=== PATIENT | female | born 1980 | race Caucasian/White ===

== ENCOUNTER 2021-06-13 02:40 | Outpatient (CLI) | payer OTHER, SELFPAY ==
[2021-06-13 10:30] LABS: Potassium 4.2 mmol/L (3.5-5.1)
== END 2021-06-13 02:41 | disposition home or self-care (01) ==
LOC: LBO 02:41
PROVIDERS: PCP Family Medicine; Visit Provider Family Medicine
DX: E87.6 Hypokalemia (principal)
CPT/HCPCS: 36415; 84132

== ENCOUNTER 2023-01-29 01:37 | Outpatient (CLI) | payer BC, SELFPAY ==
--- NOTE | 2023-01-29 | DI.MAMMO_ITS ---
Exam(s) MG MAMMO SCREENING 60 MIN DUR EXAM: MG MAMMO SCREENING 60 MIN DUR CLINICAL HISTORY: SCREENING, Z12.31, HAS BREAST IMPLANTS TECHNIQUE: Bilateral full field digital CC and MLO mammographic images were obtained with 3D tomosyn thesis and utilizing computer aided detection (CAD). COMPARISON: This is a baseline examination. FINDINGS: The patient has bilateral breast implants. Masses/Architectural Distortion: None seen. Microcalcifications: No suspicious pleomorphic-type are seen. Skin Thickening/Nipple Retraction: None. IMPRESSION: 1. No specific features of malignancy are noted. 2. Unless there is more urgent need, screening mammography is recommended, as per [employer] guidelines. BI-RADS Category 1 - Negative Breast Density - Category C - Heterogeneously dense Breast density category C or D implies that the patient has dense breast tissue. Dense breast tissue is very common and is not abnormal but dense breast tissue can make it harder to find cancer on a ma mmogram. Also, dense breast tissue may increase their breast cancer risk. This information about the result of the mammogram report was provided to the patient to raise their awareness. Use this report when you speak with the patient about their risks for breast cancer, which includes their family hist ory. At that time, you may recommend for more screening tests (Ultrasound or MRI) as they might be us eful based on their risk. A negative radiographic report should not delay biopsy if a dominant or clinically suspicious mass is present. Up to ten percent of cancers are not identified on mammography. A negative report may reinforce clinical impression. Adenosis and dense breasts may obscure an underlying neoplasm. False positive reports average 6 to 10%. Patient will receive a letter notifying them of these results.
== END 2023-01-29 01:57 ==
PROVIDERS: PCP Family Medicine; Visit Provider Family Medicine
DX: Z12.31 Encounter for screening mammogram for malignant neoplasm of breast (principal); Z98.82 Breast implant status
CPT/HCPCS: 77063; 77067

== ENCOUNTER 2023-04-28 17:07 | Outpatient (CLI) | payer BC, SELFPAY ==
[2023-04-28 17:13] LABS: Anion Gap 7.3 mmol/L (3-11); BUN 11 mg/dL (7-18); CO2 27.7 mmol/L (21.0-32.0); CREATININE 1.1 mg/dL (0.55-1.02); Calcium 9.7 mg/dL (8.5-10.1); Calculated LDL 119 mg/dL (<100); Chloride 104 mmol/L (98-107); Cholesterol 199 mg/dL (<200); Estimated GFR 63.15 (mL/min/1.73m2); Glucose 104 mg/dL (74-106); HDL Cholesterol 70 mg/dL (40-60); Sodium 139 mmol/L (136-145); Triglyceride 50 mg/dL (<150)
== END 2023-04-28 17:08 | disposition home or self-care (01) ==
LOC: LBO 17:08
PROVIDERS: PCP Family Medicine; Visit Provider Family Medicine
DX: Z00.00 Encounter for general adult medical examination without abnormal findings (principal); E87.6 Hypokalemia; Z13.220 Encounter for screening for lipoid disorders
CPT/HCPCS: 36415; 80048; 80061

== ENCOUNTER → 2024-02-02 00:59 | Outpatient (CLI) | payer BC, SELFPAY ==
--- NOTE | 2024-02-02 | DI.MAMMO_ITS ---
Exam(s) MG MAMMO SCREENING 60 MIN DUR EXAM: MG MAMMO SCREENING 60 MIN DUR CLINICAL HISTORY: Screening, Z12.31; has breast implants TECHNIQUE: Bilateral full field digital CC and MLO mammographic images were obtained with 3D tomosyn thesis and utilizing computer aided detection (CAD). COMPARISON: Available for comparison. FINDINGS: Masses/Architectural Distortion: None seen. The patient has bilateral breast implants which appears s table. Microcalcifications: No suspicious pleomorphic-type are seen. Skin Thickening/Nipple Retraction: None. IMPRESSION: 1. No significant interval change with no specific features of malignancy noted. 2. Unless there is more urgent need, screening mammography is recommended, as per [employer] guidelines. BI-RADS Category 1 - Negative Breast Density - Category C - Heterogeneously dense Breast density category C or D implies that the patient has dense breast tissue. Dense breast tissue is very common and is not abnormal but dense breast tissue can make it harder to find cancer on a ma mmogram. Also, dense breast tissue may increase their breast cancer risk. This information about the result of the mammogram report was provided to the patient to raise their awareness. Use this report when you speak with the patient about their risks for breast cancer, which includes their family hist ory. At that time, you may recommend for more screening tests (Ultrasound or MRI) as they might be us eful based on their risk. A negative radiographic report should not delay biopsy if a dominant or clinically suspicious mass is present. Up to ten percent of cancers are not identified on mammography. A negative report may reinforce clinical impression. Adenosis and dense breasts may obscure an underlying neoplasm. False positive reports average 6 to 10%. Patient will receive a letter notifying them of these results.
== END ==
PROVIDERS: PCP Family Medicine; Visit Provider Family Medicine
DX: Z12.31 Encounter for screening mammogram for malignant neoplasm of breast (principal); R92.333 Mammographic heterogeneous density, bilateral breasts
CPT/HCPCS: 77063; 77067

== ENCOUNTER 2024-02-09 07:18 | Day surgery (SDC) | payer BC, SELFPAY ==
--- NOTE | 2024-02-08 12:35 | HPE_ITS ---
Date of service: 02/09/24 Time of Service: 08:44 Assessment and Plan Assessment and plan (1) Screening for malignant neoplasm of colon performed: Status: Acute (2) Colon cancer screening: Status: Acute Assessment and plan: Plan: Colonoscopy w/ general & natural airway Informed consent is obtained for the procedural (explained in simple layman's terms that?the pt and/or family could understand) explaining risks vs benefits and alternatives to the procedure and consequences if we do not do the procedure and need/rational for the procedure. Risks include but are not limited to: bleeding, infection, perforation of colon.? This would necessitate emergency surgery to repair the damage w/ possible ostomy; and other associated complications w/ the required surgery. ? Also complications of anesthesia including aspiration, OK/CVA/, inability to complete the procedure. I discussed with the?patient would they could expect during the procedure, post procedure and recovery time and risks.? The patient understands that they need to have a ride home after the procedure.? The patient was given all this info rmation in writing and expressed understanding. If there are any questions or concerns please feel free to contact our office.? Generally Colonoscopy does not require antibiotics prophylaxis, This document was created with voice activated software and may contain errors. 20 mins spent in direct pt care and 15 in non face to face time History of Present Illness Narrative: Patient is here today for colonoscopy for CRC screening.??? They completed a bowel prep with just a clear yellow residual effluent.? They not having any chest pain or shortness of breath, currently.? They are not experiencing any fever or chills.? They deny any productive cough or upper respiratory tract inf ection signs or symptoms.? They are not having abdominal pain, or nausea and vomiting.? They have not had any changes in medications, past medical history or past surgical history since previously being seen in the office. They have not had any accidents or have been in the ER since the clinic pre-operative evaluation. ??I reviewed the procedure with the patient today, including risks and benefits of the procedure, and what they could expect at home for recovery.? All questions are answered to the patient?s satisfaction today, and they are stable to proceed with the proposed procedure. Patient has severe postop nausea and vomiting. Anesthesia is aware. The patient is here for Colonoscopy pre-op. She denies having any family history of colon cancer. She has not had any bowel habit changes. -Discussed colonoscopy bowel prep as well as the procedure. Discussed possible complications of the procedure to include bleeding, pain, perforation, missed small lesion/polyp, sore throat, aspiration and adverse reaction to the medications. Questions were answered to patient?s satisfaction. No guarantees were implied or given. Anesthesia: general (without airway) Previous surgical intolerances: None Previous surgical complications: None Pulmonary risk factors: None PFT's: None Planned procedure: Yes Sleep apnea risks: No Can climb one flight of stairs (12-13 steps) in less than 30 seconds without stopping and without symptoms: Yes The surgery proposed for this patient is: Low risk Active cardiac conditions: None ECHO: None Stress Test: None Active risk factors: None ASA (acetylsalicylic acid):No Beta blockers: No Anti-coagulation: N/A Medications to be held: N/A P// Colonoscopy under sedation New 43 y/o female with history of adjustment disorder presents for colonoscopy screening pre-op. She denies a family history of colon cancer. She denies any changes in bowel habits including bloody or black tarry stools, abdominal pain, diarrhea or constipation. She denies constitutional symptoms. She denies chest pain, palpitations, dyspnea or dyspnea with exertion. She d enies prior history or family history of adverse reactions or complications with anesthesia. The patient denies any history of stroke, OK, seizures, bleeding or clotting disorders. She has implanted metal in the left side of her jaw. PFSH All Active Problems Colon cancer screening (Acute) Screening for malignant neoplasm of colon performed (Acute) Adjustment disorder with anxious mood (Acute) Medical History Abnormal cervical Papanicolaou smear Hx of malignant melanoma Acne Surgical History History of mandibular surgery jaw reconstruction 1993 History of augmentation of both breasts 04/2007 H/O melanoma excision Abdomen 2007 History of colposcopy 03/07/20 Family History (Updated 08/04/23 @ 14:45 by Kiley Weaver RN, RN) Father Depression Thyroid cancer anaplastic thyroid ca Maternal Grandfather Lung cancer Mother Colon cancer Brain cancer Lung cancer Maternal Aunt Breast cancer Social History (Updated 11/18/23 @ 13:49 by EFRAÍN Portillo) Smoking/Tobacco Use Status: Former Tobacco Use Quit Date: 07/13/13 Tobacco: How many years used: 6 Smoking risk assessment performed?: Yes Alcohol Intake: former Year quit: 2020 Drug use: Occasionally Substance use type: marijuana Details: Edibles/smoking: t-1, couple hits Household members: children Housing: house Number of Children: 2 Do you feel safe at home: Yes Do you feel safe in your relationship?: Yes Additional Social history: UTAP Meds Allergies and Home Medications Allergies Allergy/AdvReac Type Severity Reaction Status Date / Time deer flies Allergy Intermediate swollen Uncoded 02/09/24 07:51 lips Home Medications ?Medication ?Instructions ?Recorded ?Confirmed ?Type adapalene 0.1 %-benzoyl peroxide 1 applic topical DAILY 08/04/23 02/09/24 H istory 2.5 % topical gel with pump (Epiduo) dextroamphetamine-amphetamine 10 10 mg PO DAILY 08/04/23 02/09/24 History mg tablet (Adderall) dextroamphetamine-amphetamine ER 20 mg PO DAILY 08/04/23 02/09/24 History 20 mg 24hr capsule,extend release (Adderall XR) epinephrine 0.3 mg/0.3 mL 0.3 mg IM ONCE 08/04/23 02/09/24 History injection, auto-injector Time Spent Time spent with Patient: <40 minutes Time was spent: preparing to see the patient(eg.review tests), obtaining and/or reviewing separately otained hiistory, ordering medications,tests, procedures, referring, communicating with other health patient care director, indepentently interpreting results, counseling the patient, care coordination and other
--- NOTE | 2024-02-08 12:46 | PDOC.DSDIS_ITS ---
Date of service: 02/09/24 Time of Service: 09:38 Discharge Plan Disposition Patient Disposition: Home Condition: Good Discharge Details Reason For Visit: colon cancer screening Attending Provider: Shayy Bustillos Primary Care Provider: Lissy Alvarado Home Meds and New Rx's Prescriptions: Continued dextroamphetamine-amphetamine [Adderall XR] 20 mg capsule,extended release 24hr 20 mg PO DAILY dextroamphetamine-amphetamine [Adderall] 10 mg tablet 10 mg PO DAILY adapalene-benzoyl peroxide [Epiduo] 0.1-2.5 % gel with pump 1 applic topical DAILY epinephrine 0.3 mg/0.3 mL auto-injector 0.3 mg IM ONCE Rx Instructions: as a single dose; may repeat once Discontinued bisacodyl [Dulcolax (bisacodyl)] 5 mg tablet,delayed release (DR/EC) 5 mg PO ONCE Qty: 4 0RF polyethylene glycol 3350 17 gram/dose powder 17 g PO DAILY Qty: 238 0RF Discharge Instructions Additional Instructions: DSU Colonoscopy Post- Op Instructions Instructions for Everyone who is given Anesthesia: For your safety, please do the following for the next twenty-four (24) hours: *Do Not operate a motor vehicle (car, truck, motorcycle, etc.) *Do Not drink alcoholic beverages or use any recreational drugs for the first 24 hours or while taking pain medications. The medications in your body may have a reaction that can be dangerous. *Do Not make any important decisions or sign any important papers. Findings: X 1 small polyp in the colon. Otherwise normal. Follow up: My office will send you a letter in 2 to 3 weeks time with the results of the pathology and when we want you to repeat your colonoscopy, most likely in 7 to 10 years time. 1. No lifting over 20 pounds or strenuous activity for the first 24 hours after your procedure. After 24 hours there are no restrictions on your activity but you may feel fatigued for a few days. 2. After you arrive home you may have a light meal and return to your normal diet as you can tolerate it without feeling sick to your stomach. 3. You may have a bloated, gaseous feeling in your belly (abdomen) after a colonoscopy. Passing gas and belching will help. Walking or lying down on your left side with your knees flexed may relieve the discomfort. Call the office at [phone] (Office) or [phone] (Hospital) right away if you notice any of the following: a.Vomiting of blood or ?coffee ground stools?. b.Rectal bleeding 1Tbsp, blood clots or continuous bleeding. c.Severe belly (abdominal) pain. d.A hard distended belly (abdomen) and an inability to pass gas. 4. Please don?t expect to have a normal BM (bowel movement) for 2-3 days after your procedure. 5. If there are questions regarding the findings of your procedure, please contact your doctor 6. If you are unable to contact your doctor with a problem, contact the hospital at [phone]. 7. Continue all your regular medications unless directed otherwise. I understand the above instructions and have no questions. Signature of Patient or Adult Escort Name of Responsible Adult Escort Signature of Nurse Date/Time Activity:: see above Diet:: see above Discharge Orders Discharge Orders: Discharge Order (Routine); Ordered 02/09/24 Ordered By: Shayy Bustillos DS: Diagnosis Discharge Diagnosis (1) Screening for malignant neoplasm of colon performed: Status: Acute Asessment and Plan: The patient is seen and examined after their colonoscopy.? The patient has been able to pass gas.? They are not having abdominal pain.? They have been able to tolerate liquids and a snack.? They do not have any nausea or vomiting.? They are not having any chest pain or shortness of breath.??? They are not having any rectal bleeding. Their vital signs have been stable-see nursing notes. We discussed findings during their colonoscopy, and any biopsies that were do ne/polyps that were removed. The patient will be sent a letter with any biopsy results, and when to repeat the colonoscopy.-see discharge instructions. Patient was given explicit instructions to follow-up regarding colonoscopy-refer to discharge instructions.? We reviewed resumption of medications. Patient verbalized understanding and discharged in stable and satisfactory condition- See nursing notes. (2) Colon cancer screening: Status: Acute
--- NOTE | 2024-02-08 12:48 | COLE_ITS ---
Date of service: 02/09/24 Time of Service: 09:40 Colonoscopy Report Date of procedure: 02/09/24 Pre-op diagnosis general: CRC screen Post-op diagnosis procedure note: other (Small rectal polyp) Surgeon: Shayy Bustillos Anesthesia Type: General:No Airway Estimated blood loss (mL): 1 Pathology: other Complications: None Disposition: same day Prep: Miralax/Dulcolax Retraction Time: 7 Procedure Description: After informed consent was obtained, explaining risks of the procedure, including but not limits to: bleeding, infections, complications of anesthesia, perforations (which may require antibiotics and /or surgery and stay in the hospital), and abdominal pain/cramping. The patient was taken to the procedure room and placed in a left decubitous position. Monitors were applied and a time out was done. The patients name, date of , procedure, allergies to medications and metal in their body was reviewed. The patient was then sedated. Once sedated and comfortable a rectal exam was done. External exam was normal. Internal exam revealed a normal sphincter tone and no palpable masses. The previously lubricated Olympus scope was then introduced (see RN notes for scope number) and retrofelexed. No internal hemorrhoids were identified. The scope was then advanced to the cecum without difficulty. The TI and appendiceal orifice were identified. The scope was then slowly retracted over 7 minutes back into the rectum. Polyps: A flat, .5cm polyp was found in rectum. This was removed with a cold biting forceps. All of the specimen was retrieved. This will be sent to pathology. There is no bleeding noted from the polypectomy site. . Diverticula: no. The mucosa is pink and healthy w/ a normal vascular pattern. The scope was removed, and the patient was woken up and taken back to Same day surgery in stable condition. The patient tolerated the procedure well and there were no immediate complications. Follow up: The patient should follow up in 7-10 years, unless they develop changes in bowel habits or other new gastrointestinal complaints. [place] Bowel Prep [place] Bowel Prep Right Colon: 3 Left Colon: 3 Transverse Colon: 3 Total Score: 9
[2024-02-09 07:54] VITALS: BP 117/79; PULSE 60; RESP 16; TEMP 36.6; O2SAT 100
[2024-02-09] MEDS: Lactated Ringers 1,000 ML 80 ML IV (08:20)
--- NOTE | 2024-02-09 08:30 | W.ANESPRE ---
General Info Date of Service Date Performed: 02/09/24 Height: 5 ft 3 in Weight: 59.4 kg Body Mass Index (BMI): 23.1 Surgical Procedure: Operation Date: 02/09/24 08:20 Proposed Procedure Side Surgeon sujey Bustillos, DO Meds Allergies and Home Medications Allergies Allergy/AdvReac Type Severity Reaction Status Date / Time deer flies Allergy Intermediate swollen Uncoded 02/09/24 07:51 lips Home Medication ?Medication ?Instructions ?Recorded adapalene 0.1 %-benzoyl peroxide 1 applic topical DAILY 08/04/23 2.5 % topical gel with pump (Epiduo) dextroamphetamine-amphetamine 10 10 mg PO DAILY 08/04/23 mg tablet (Adderall) dextroamphetamine-amphetamine ER 20 mg PO DAILY 08/04/23 20 mg 24hr capsule,extend release (Adderall XR) epinephrine 0.3 mg/0.3 mL 0.3 mg IM ONCE 08/04/23 injection, auto-injector Current Visit Medications: Current Medications Generic Name Dose Route Start Last Admin Trade Name Freq PRN Reason Stop Dose Admin Hyoscyamine Sulfate 0.125 mg 02/09/24 00:32 Hyoscyamine 0.125 Mg Sl/Oral/Chew SL 03/10/24 00:31 DIRECTED PRN Ringer's Solution 1,000 mls @ 80 mls/hr 02/09/24 06:00 02/09/24 08:20 IV 02/09/24 23:59 80 mls/hr INFUSION ELIZABETH Administration IV Miscellaneous Supplies 1 each 02/09/24 06:00 Iv Access IV 02/09/24 23:59 DIRECTED ELIZABETH Ondansetron HCl 4 mg 02/09/24 00:32 Ondansetron 4 Mg/2 Ml Vial IVP 03/10/24 00:31 Q4H PRN PRN Nausea / Vomiting Sodium Chloride 0 ml 02/09/24 06:00 Normal Saline Flush 10 Ml Syr IV 02/09/24 23:59 PRN PRN Sodium Chloride 0 ml 02/09/24 06:00 Normal Saline 10 Ml Vial IJ 02/09/24 23:59 DIRECTED PRN Sterile Water 0 ml 02/09/24 06:00 Water,Injection,Sterile 10 Ml Vial IJ 02/09/24 23:59 DIRECTED PRN PFSH Active Problems Active Problems: Problem Status Onset Code Colon cancer screening Acute Z12.11 Screening for malignant neoplasm of colon performed Acute Z12.11 Adjustment disorder with anxious mood Acute F43.22 Medical History Medical History Abnormal cervical Papanicolaou smear Hx of malignant melanoma Acne Medical History Comments:: after every procedure Surgical History Surgical History History of mandibular surgery jaw reconstruction 1993 History of augmentation of both breasts 04/2007 H/O melanoma excision Abdomen 2007 History of colposcopy 03/07/20 Tobacco Smoking/Tobacco Use Status: Former Tobacco Use Alcohol Alcohol Intake: former Year quit: 2020 Substance Use Substance use: Occasionally Substance use type: marijuana Details: Edibles/smoking: t-1, couple hits Vital Signs and Lab Results Vital Signs Most Recent Vital Signs in EMR: Most Recent Vital Signs Temp Pulse Resp BP Pulse Ox 36.6 C 60 16 117/79 100 02/09/24 07:54 02/09/24 07:54 02/09/24 07:54 02/09/24 07:54 02/09/24 07:54 Lab Results Blood Type / Crossmatch: No Data to Display Complete Blood Count: No Data to Display Complete Metabolic Panel: No Data to Display Liver Function Panel: No Data to Display Coagulation Panel: No Data to Display Cardiac Panel: No Data to Display Arterial Blood Gas: No Data to Display Venous Blood Gas: No Data to Display Pancreas Panel: No Data to Display Thyroid Panel: No Data to Display Infectious Disease: No Data to Display Blood Cultures: No Data to Display Toxicology Panel: No Data to Display Panel: No Data to Display Anesthesia Assessment and Plan Anesthesia History Personal History: PONV Family History: No Family History of Anesthesia Complications Exercise Tolerance Exercise Tolerance: Metabolic Equivalents>4 Cardiac & Pulmonary Exam Cardiac Exam: Normal S1/S2 Heart Sounds Pulmonary Exam: Clear Bilateral Breath Sounds Implantable Cardiac Device Does patient have a Pacemaker or an ICD?: No Airway Exam Known Difficult Airway: No Mallampati Class: 2 Mouth Opening: Normal (> 3cm) Thyromental Distance: Greater than 3 cm Neck Range of Motion: Full ROM Neck Circumference: Normal Teeth Condition: Normal Dentition ASA Classification ASA Score: ASA 2 Emergency Case?: No NPO Status NPO Status: NPO Clears >2 hours, Solids >8 hours Status Status: Negative HCG Anesthesia Plan Resuscitation Status: Full Code Anesthesia Technique: General Anesthesia Airway Planned: Natural Airway Monitors Used: Standard Monitors
[2024-02-09 08:31] VITALS: BMI 23.1
--- NOTE | 2024-02-09 08:57 | BOWEL_PTH ---
PATIENT: Merly Choi LOC: [facility] U#:[id number] AGE/SX: 44/F ROOM: RE02/09/[address]: Shayy Bustillos : 1980 BED: DIS: 02/09/2024 SPEC #: [id number] RECD: 02/09/24 16:53 STATUS: ESTEFANI REQ #: [id number] RAMANDEEP: 02/09/24 08:[address]: Shayy Bustillos DEPT: Surgical Specimen RECD BY: Jennifer Wilson ENTERED: 02/09/24 16:56 SP TYPE: Bowel OTHR DR: Lissy Alvarado Tissues: 1 - BIOPSY BOWEL Procedures: GROSS AND MICRO LEVEL 4 Comments: [id number]
[2024-02-09 09:16] VITALS: BP 107/83; PULSE 87; RESP 16; TEMP 36.2; O2SAT 100
[2024-02-09 09:44] VITALS: BP 100/74; PULSE 53; RESP 16; TEMP 36.7; O2SAT 99
--- NOTE | 2024-02-09 10:12 | W.ANESPOSTOP ---
Postoperative Evaluation Date, Time and Location Date Performed: 02/09/24 Time Performed: 10:02 Patient Location: Day Surgery Unit Vital Signs Most Recent Imported Vital Signs: Most Recent Vital Signs Temp Pulse Resp BP Pulse Ox 36.7 C 53 L 16 100/74 99 02/09/24 09:44 02/09/24 09:44 02/09/24 09:44 02/09/24 09:44 02/09/24 09:44 Pain Score Most Recent Pain Score: Most Recent Pain Score Pain Level 0 02/09/24 09:44 Assessment Mental Status: Awake (Alert & Oriented to Patient Baseline) Airway and Respiratory Function: Patent airway with normal (patient baseline) respiratory exam Cardiovascular Function: Hemodynamically Stable Hydration Status: Adequately Hydrated Nausea & Vomiting: No Nausea or Vomiting Pain: Pt. Denies Any Pain Peripheral Nerve Block: Patient did not receive a nerve block
== END 2024-02-09 10:38 | disposition home or self-care (01) ==
LOC: SUR 07:19
PROVIDERS: PCP Family Medicine; Visit Provider Surgery
PROC: 0DJD8ZZ Inspection of Lower Intestinal Tract, Via Natural or Artificial Opening Endoscopic (ICD-10-PCS; CPT 45378; principal; 2024-02-09 08:15)
DX: Z12.11 Encounter for screening for malignant neoplasm of colon (principal); K62.1 Rectal polyp
CPT/HCPCS: 45380; 81025; 88305; J2001; J2405; J2469; J2704